=== PATIENT | male | born 1980 | race Caucasian/White ===

== ENCOUNTER 2016-10-12 09:49 | Emergency (ER) | payer OTHER ==
[2016-10-12 10:41] LABS: Basophils % (Auto) 0.4 % (0.0-1.8); Eosinophils % (Auto) 5.1 % (0.0-4.3); Hematocrit 41.2 % (35.5-45.6); Hemoglobin 13.3 gm/dl (11.8-15.2); Mean Corpuscular HGB Conc 32 % (32-34); Mean Corpuscular Hemoglobin 31 pg (28-32); Mean Corpuscular Volume 94 fl (84-94); Platelet Count 508 K/mm3 (140-440); Red Blood Count 4.36 M/mm3 (3.65-5.03); Red Cell Distribution Width 14.5 % (13.2-15.2); White Blood Count 13.8 K/mm3 (4.5-11.0)
[2016-10-12 10:46] LABS: Alanine Aminotransferase 21 units/L (7-56); Albumin 3.6 g/dL (3.9-5); Alkaline Phosphatase 36 units/L (35-129); Anion Gap 15 mmol/L; BUN/Creatinine Ratio 16.25; Blood Urea Nitrogen 13 mg/dL (9-20); Carbon Dioxide 28 mmol/L (22-30); Chloride 99.3 mmol/L (98-107); Glucose 84 mg/dL (75-100); Lipase 58 units/L (13-60); Potassium 4.9 mmol/L (3.6-5.0); Sodium 137 mmol/L (137-145); Total Protein 7.1 g/dL (6.3-8.2)
[2016-10-12 15:12] LABS: Bilirubin,Urine NEG (Negative); Blood,Urine NEG (Negative); Ketones,Urine NEG (Negative); Leukocyte Esterase,Urine NEG (Negative); Mucus,Urine FEW /HPF; Nitrite,Urine NEG (Negative); Protein,Urine <15 mg/dL mg/dL (Negative); RBC,Urine < 1.0 /HPF (0.0-6.0); Urobilinogen,Urine < 2.0 mg/dL (<2.0)
[2016-10-12] MEDS ORDERED: DELTASONE PO ONE (15:13)
--- NOTE | 2016-10-12 15:13 | Emergency Department Report ---
ED Abdominal Pain HPI - General Chief Complaint: Abdominal Pain Stated Complaint: COLITIS FLARE Time Seen by Provider: 10/12/16 14:41 Source: patient Mode of arrival: Ambulatory Limitations: No Limitations - History of Present Illness Initial Comments: 36-year-old male visiting from [facility] here with abdominal pain and bloody bowel movements worse in the last 3-4 weeks. He recently was placed on a course of Medrol and had some slight resolution of symptoms but as the taper has decreased his symptoms have increased. He denies fevers chills nausea vomiting. He has a shank threader this is in [place]. Location: diffuse Radiation: none Migration to: no migration Severity: moderate Severity scale (0 -10): 0 Quality: cramping Consistency: intermittent Improves With: nothing Worsens With: nothing Associated Symptoms: other (bloody diarrhea ) - Related Data Previous Rx's Medication Instructions Recorded Last Taken Type predniSONE [Deltasone] 40 mg PO ONCE #20 tablet 10/12/16 Unknown Rx Allergies Allergy/AdvReac Type Severity Reaction Status Date / Time No Known Allergies Allergy Verified 10/12/16 10:16 ED Review of Systems ROS: Stated complaint: COLITIS FLARE Other details as noted in HPI Comment: All other systems reviewed and negative Constitutional: denies: chills, fever Eyes: denies: eye pain, eye discharge, vision change ENT: denies: ear pain, throat pain Respiratory: denies: cough, shortness of breath, wheezing Cardiovascular: denies: chest pain, palpitations Endocrine: no symptoms reported Gastrointestinal: abdominal pain, hematochezia. denies: nausea, diarrhea Genitourinary: denies: urgency, dysuria Musculoskeletal: denies: back pain, joint swelling, arthralgia Skin: denies: rash, lesions Neurological: denies: headache, weakness, paresthesias Psychiatric: denies: anxiety, depression Hematological/Lymphatic: denies: easy bleeding, easy bruising ED Past Medical Hx - Past Medical History Additional medical history: Ulcerative colitis - Surgical History Past Surgical History?: No - Family History Family history: no significant - Social History Smoking Status: Never Smoker Substance Use Type: Alcohol - Medications Home Medications: Home Medications Medication Instructions Recorded Confirmed Last Taken Type predniSONE [Deltasone] 40 mg PO ONCE #20 tablet 10/12/16 Unknown Rx ED Physical Exam - General Limitations: No Limitations General appearance: alert, in no apparent distress - Head Head exam: Present: atraumatic, normocephalic - Eye Eye exam: Present: normal appearance - ENT ENT exam: Present: mucous membranes moist - Neck Neck exam: Present: normal inspection - Respiratory Respiratory exam: Present: normal lung sounds bilaterally. Absent: respiratory distress - Cardiovascular Cardiovascular Exam: Present: regular rate, normal rhythm. Absent: systolic murmur, diastolic murmur, rubs, gallop - GI/Abdominal GI/Abdominal exam: Present: soft, normal bowel sounds. Absent: distended, tenderness, guarding, rebound - Rectal Rectal exam: Present: deferred - Extremities Exam Extremities exam: Present: normal inspection - Back Exam Back exam: Present: normal inspection - Neurological Exam Neurological exam: Present: alert, oriented X3 - Psychiatric Psychiatric exam: Present: normal affect, normal mood - Skin Skin exam: Present: warm, dry, intact, normal color. Absent: rash ED Course Vital Signs 10/12/16 10:08 Temperature 98.3 F Pulse Rate 84 Respiratory 18 Rate Blood Pressure 128/80 Blood Pressure 128/80 [Left] O2 Sat by Pulse 100 Oximetry ED Medical Decision Making - Lab Data Result diagrams: 10/12/16 10:14 10/12/16 10:14 Abnormal Lab Results 10/12/16 10/12/16 10:14 10:14 WBC 13.8 H RBC 4.36 Hgb 13.3 Hct 41.2 MCV 94 MCH 31 MCHC 32 RDW 14.5 Plt Count 508 H Lymph % (Auto) 10.9 L [place] % (Auto) 12.1 H Eos % (Auto) 5.1 H Baso % (Auto) 0.4 Lymph # 1.5 [place] # 1.7 H Eos # 0.7 H Baso # 0.1 Seg Neutrophils % 71.5 H Seg Neutrophils # 9.9 H Sodium 137 Potassium 4.9 Chloride 99.3 Carbon Dioxide 28 Anion Gap 15 BUN 13 Creatinine 0.8 Estimated GFR > 60 BUN/Creatinine Ratio 16.25 Glucose 84 Calcium 9.0 Total Bilirubin 0.30 AST 15 ALT 21 Alkaline Phosphatase 36 Total Protein 7.1 Albumin 3.6 L Albumin/Globulin Ratio 1.0 Lipase 58 - Medical Decision Making Patient is a 36-year-old male with history of ulcerative colitis here with increasing bloody diarrhea. He has a white blood cell count 13.8 but has been on steroids. He has no other symptoms is afebrile. I will increase his steroids to 40 mg of prednisone for 10 days. He is scheduled to fly back to the into Saturdays. He otherwise appears well. He agrees with this plan. Portions of this chart were dictated with dictation software. There may be dictation errors contained within this note. Critical care attestation.: If time is entered above; I have spent that time in minutes in the direct care of this critically ill patient, excluding procedure time. ED Disposition Clinical Impression: Ulcerative colitis Disposition: TO HOME OR SELFCARE Is pt being admited?: No Condition: Stable Instructions: Ulcerative Colitis (ED) Additional Instructions: Please follow up with her shank threader when he returned to . In the meantime if you need gastroenterology assistance she may call [facility] at [phone] Prescriptions: predniSONE [Deltasone] 40 mg PO ONCE #20 tablet Referrals: PRIMARY CARE, [Primary Care Provider] - 3-5 Days
[2016-10-12 15:37] VITALS: BP 124/78
== END 2016-10-12 15:37 | disposition home or self-care (01) ==
LOC: ED 09:49
DX: K51.90 Ulcerative colitis, unspecified, without complications (principal)
CPT/HCPCS: 36415; 80053; 81001; 83690; 85025; 99283